=== PATIENT | female | born 1985 | race Caucasian/White ===

== ENCOUNTER → 2019-10-06 | Outpatient (CLI) | payer OTHER | LOC: LAB 15:40 | DX: N91.2 Amenorrhea, unspecified (principal) ==

== ENCOUNTER → 2019-10-13 | Outpatient (CLI) | payer OTHER ==
[2019-10-13 14:57] LABS: EOS # 0.2 (0.04-0.40); EOS % 1.9 % (1.0-5.0); HEMATOCRIT 40.5 % (37.0-47.0); HEMOGLOBIN 13.2 g/dL (12.5-16.0); LYMPH# 3.6 (1.50-4.00); MEAN CELL VOLUME 84 fl (78-100); MEAN CORPUSCULAR HEMOGLOBIN 28 pg (27-31); MEAN CORPUSCULAR HGB CONC 33 g/dL (33-37); MEAN PLATELET VOLUME 9.1 fl (7.4-10.4); MONO # 0.7 (0.20-0.80); NEU # 7.8 (1.40-6.50); PLATELET COUNT 335 K/mm3 (130-400); RED CELL DISTRIBUTION WIDTH 13.9 % (11.5-14.5); WHITE BLOOD COUNT 12.4 K/mm3 (4.8-10.8)
[2019-10-13 15:08] LABS: ALBUMIN 4.3 g/dL (3.5-5.0)
[2019-10-13 15:09] LABS: POTASSIUM 3.6 mmol/L (3.5-5.1)
[2019-10-13 15:10] LABS: CALCIUM 9.6 mg/dL (8.3-10.5)
[2019-10-13 15:11] LABS: TOTAL PROTEIN 7.7 g/dL (6.4-8.3)
[2019-10-13 15:13] LABS: TOTAL BILIRUBIN 0.2 mg/dL (0.2-1.2)
[2019-10-13 15:58] LABS: ERYTHROCYTE SEDIMENTATION RATE 33 mm/hr (0-20)
== END ==
LOC: LAB 14:46
PROVIDERS: Internal Medicine
DX: R10.84 Generalized abdominal pain (principal); R11.2 Nausea with vomiting, unspecified

== ENCOUNTER → 2019-10-16 | Outpatient (CLI) | payer OTHER | LOC: RAD 14:22 | DX: R10.84 Generalized abdominal pain (principal); R11.2 Nausea with vomiting, unspecified | CPT/HCPCS: Q9967 ==

== ENCOUNTER → 2019-11-12 | Outpatient (CLI) | payer OTHER | LOC: RAD 07:25 | DX: K80.20 Calculus of gallbladder without cholecystitis without obstruction (principal) ==

== ENCOUNTER → 2020-12-22 | Outpatient (CLI) | payer OTHER ==
[~2020-12-22] MED LIST: PHARMASSURE CHE30 MG; PREDNISONE20 MG; VITAMIN C500 M6 PO
[2020-12-22 11:23] LABS: EOS # 0.2 (0.04-0.40); EOS % 2.8 % (1.0-5.0); HEMATOCRIT 41.2 % (37.0-47.0); HEMOGLOBIN 13.3 g/dL (12.5-16.0); LYMPH# 2.1 (1.50-4.00); MEAN CELL VOLUME 83 fl (78-100); MEAN CORPUSCULAR HEMOGLOBIN 27 pg (27-31); MEAN CORPUSCULAR HGB CONC 32 g/dL (33-37); MEAN PLATELET VOLUME 8.7 fl (7.4-10.4); MONO # 0.6 (0.20-0.80); NEU # 5.1 (1.40-6.50); PLATELET COUNT 299 K/mm3 (130-400); RED BLOOD COUNT 4.96 M/mm3 (4.10-5.30); RED CELL DISTRIBUTION WIDTH 14.6 % (11.5-14.5)
[2020-12-22 11:31] LABS: ALBUMIN 4.1 g/dL (3.5-5.0)
[2020-12-22 11:32] LABS: POTASSIUM 3.9 mmol/L (3.5-5.1)
[2020-12-22 11:33] LABS: CALCIUM 9.3 mg/dL (8.3-10.5)
[2020-12-22 11:34] LABS: TOTAL PROTEIN 7.1 g/dL (6.4-8.3)
[2020-12-22 11:36] LABS: TOTAL BILIRUBIN 0.4 mg/dL (0.2-1.2)
[2020-12-22 12:17] LABS: D-DIMER 0.77 mg/L FEU (0.15-0.50)
[2020-12-22 13:24] LABS: ERYTHROCYTE SEDIMENTATION RATE 70 mm/hr (0-20)
== END ==
LOC: LAB 10:57
PROVIDERS: Internal Medicine
DX: U07.1 COVID-19 (principal); K90.9 Intestinal malabsorption, unspecified; R59.0 Localized enlarged lymph nodes

== ENCOUNTER → 2020-12-23 | Outpatient (CLI) | payer OTHER | LOC: RAD 09:12 | DX: J18.1 Lobar pneumonia, unspecified organism (principal); Z90.49 Acquired absence of other specified parts of digestive tract | CPT/HCPCS: Q9967 ==

== ENCOUNTER 2021-01-05 12:53 | Inpatient (IN) | payer OTHER ==
[~2021-01-05] VITALS: Ht 162.6 cm; Wt 100.7 kg
[2021-01-05] MEDS ORDERED: PREDNISONE20 MG (13:23)
[2021-01-05] MEDS ORDERED: VITAMIN C500 M6 PO (13:24)
[2021-01-05] MEDS ORDERED: PHARMASSURE CHE30 MG (13:24)
[2021-01-05 13:57] LABS: EOS % 0.1 % (1.0-5.0); HEMATOCRIT 45.3 % (37.0-47.0); HEMOGLOBIN 14.5 g/dL (12.5-16.0); LYMPH# 3.7 (1.50-4.00); MEAN CELL VOLUME 83 fl (78-100); MEAN CORPUSCULAR HEMOGLOBIN 27 pg (27-31); MEAN CORPUSCULAR HGB CONC 32 g/dL (33-37); MONO # 0.4 (0.20-0.80); PLATELET COUNT 417 K/mm3 (130-400); RED BLOOD COUNT 5.46 M/mm3 (4.10-5.30); RED CELL DISTRIBUTION WIDTH 14.9 % (11.5-14.5); WHITE BLOOD COUNT 17.1 K/mm3 (4.8-10.8)
[2021-01-05 13:59] LABS: NEU # 12.8 (1.40-6.50)
[2021-01-05 14:18] LABS: ALBUMIN 4.3 g/dL (3.5-5.0); POTASSIUM 3.2 mmol/L (3.5-5.1); SODIUM 141 mmol/L (136-145)
[2021-01-05 14:19] LABS: CALCIUM 9.4 mg/dL (8.3-10.5)
[2021-01-05 14:20] LABS: GLUCOSE 149 mg/dL (65-105)
[2021-01-05 14:21] LABS: TOTAL PROTEIN 7.8 g/dL (6.4-8.3)
[2021-01-05 14:22] LABS: CARBON DIOXIDE 21 mmol/L (22-29); TOTAL BILIRUBIN 0.3 mg/dL (0.2-1.2)
[2021-01-05 14:26] LABS: AST-SGOT 13 U/L (5-34)
[2021-01-05 14:27] LABS: ALT/SGPT 28 U/L (0-55)
[2021-01-05 14:40] LABS: TROPONIN-I < 0.03 ng/mL (<0.030)
[2021-01-05 15:19] LABS: D-DIMER 0.21 mg/L FEU (0.15-0.50)
[2021-01-05 16:21] LABS: URINE APPEARANCE CLEAR; URINE BILIRUBIN NEGATIVE (NEGATIVE); URINE BLOOD NEGATIVE (NEGATIVE); URINE COLOR YELLOW; URINE GLUCOSE NEGATIVE (NEGATIVE); URINE KETONE NEGATIVE (NEGATIVE); URINE LEUKOCYTE ESTERASE NEGATIVE (NEGATIVE); URINE NITRATE NEGATIVE (NEGATIVE); URINE PROTEIN(semi-quant) NEGATIVE (NEGATIVE); URINE UROBILINOGEN NORMAL (NORMAL); URINE WBC 0-1 /hpf (0-3)
[2021-01-05 17:26] VITALS: BP 110/69
[2021-01-05 21:58] VITALS: BP 114/64
[2021-01-06] VITALS (7 sets, daily range): BP systolic 101–133; BP diastolic 62–75
[2021-01-06 08:21] LABS: ALBUMIN 3.9 g/dL (3.5-5.0); POTASSIUM 3.5 mmol/L (3.5-5.1)
[2021-01-06 08:22] LABS: CALCIUM 9.1 mg/dL (8.3-10.5)
[2021-01-06 08:23] LABS: TOTAL PROTEIN 6.8 g/dL (6.4-8.3)
[2021-01-06 08:24] LABS: HEMATOCRIT 42.1 % (37.0-47.0); HEMOGLOBIN 13.1 g/dL (12.5-16.0); MEAN PLATELET VOLUME 9.3 fl (7.4-10.4); RED BLOOD COUNT 4.95 M/mm3 (4.10-5.30); RED CELL DISTRIBUTION WIDTH 15.4 % (11.5-14.5); WHITE BLOOD COUNT 17.9 K/mm3 (4.8-10.8)
[2021-01-06 08:25] LABS: TOTAL BILIRUBIN 0.3 mg/dL (0.2-1.2)
[2021-01-07 02:07] VITALS: BP 121/70
[2021-01-07 06:26] VITALS: BP 111/68
[2021-01-07 06:56] LABS: HEMATOCRIT 40.3 % (37.0-47.0); HEMOGLOBIN 12.7 g/dL (12.5-16.0); MEAN CELL VOLUME 86 fl (78-100); MEAN CORPUSCULAR HEMOGLOBIN 27 pg (27-31); MEAN CORPUSCULAR HGB CONC 32 g/dL (33-37); PLATELET COUNT 351 K/mm3 (130-400); RED BLOOD COUNT 4.71 M/mm3 (4.10-5.30); RED CELL DISTRIBUTION WIDTH 15.8 % (11.5-14.5)
[2021-01-07 07:00] LABS: WHITE BLOOD COUNT 21.4 K/mm3 (4.8-10.8)
[2021-01-07 07:03] LABS: LYMPHOCYTE 10 % (20-51); NEUTROPHILS 85 % (42-75)
[2021-01-07 07:04] LABS: MONOCYTE 3 % (3-10)
[2021-01-07 07:06] LABS: ALBUMIN 3.8 g/dL (3.5-5.0); POTASSIUM 4.3 mmol/L (3.5-5.1)
[2021-01-07 07:07] LABS: CALCIUM 9.2 mg/dL (8.3-10.5)
[2021-01-07 07:08] LABS: TOTAL PROTEIN 6.7 g/dL (6.4-8.3)
[2021-01-07 07:10] LABS: TOTAL BILIRUBIN 0.2 mg/dL (0.2-1.2)
[2021-01-07 10:31] VITALS: BP 131/80
[2021-01-07 13:56] VITALS: BP 127/75
[2021-01-07 18:32] VITALS: BP 145/80
[2021-01-07 19:23] LABS: HEMATOCRIT 39.9 % (37.0-47.0); HEMOGLOBIN 12.6 g/dL (12.5-16.0); MEAN PLATELET VOLUME 9.2 fl (7.4-10.4); RED BLOOD COUNT 4.73 M/mm3 (4.10-5.30); RED CELL DISTRIBUTION WIDTH 15.9 % (11.5-14.5)
[2021-01-07 19:24] LABS: WHITE BLOOD COUNT 23.3 K/mm3 (4.8-10.8)
[2021-01-07 19:35] LABS: POTASSIUM 4.1 mmol/L (3.5-5.1)
[2021-01-07 19:36] LABS: CALCIUM 9.2 mg/dL (8.3-10.5)
[2021-01-07 21:50] VITALS: BP 132/75
[2021-01-08 02:44] VITALS: BP 111/69
[2021-01-08 06:23] VITALS: BP 120/72
[2021-01-08 09:43] LABS: HEMOGLOBIN 12.4 g/dL (12.5-16.0); MEAN PLATELET VOLUME 8.9 fl (7.4-10.4); RED BLOOD COUNT 4.56 M/mm3 (4.10-5.30); RED CELL DISTRIBUTION WIDTH 15.8 % (11.5-14.5); WHITE BLOOD COUNT 15.5 K/mm3 (4.8-10.8)
[2021-01-08 09:50] LABS: POTASSIUM 3.3 mmol/L (3.5-5.1)
[2021-01-08 09:51] LABS: CALCIUM 8.4 mg/dL (8.3-10.5)
[2021-01-08 10:31] VITALS: BP 110/74
[2021-01-08 13:57] VITALS: BP 94/60
[2021-01-08 16:48] LABS: URINE WBC 0 /hpf (0-3)
[2021-01-08 17:14] LABS: URINE APPEARANCE CLEAR; URINE BILIRUBIN NEGATIVE (NEGATIVE); URINE BLOOD NEGATIVE (NEGATIVE); URINE COLOR YELLOW; URINE GLUCOSE NEGATIVE (NEGATIVE); URINE KETONE NEGATIVE (NEGATIVE); URINE LEUKOCYTE ESTERASE NEGATIVE (NEGATIVE); URINE NITRATE NEGATIVE (NEGATIVE); URINE PROTEIN(semi-quant) TRACE mg/dL (NEGATIVE); URINE UROBILINOGEN NORMAL (NORMAL)
[2021-01-08 18:03] VITALS: BP 112/72
[2021-01-08 22:33] VITALS: BP 120/75
[2021-01-09 02:27] VITALS: BP 104/70
[2021-01-09 06:22] VITALS: BP 100/67
[2021-01-09 09:13] LABS: EOS # 0.2 (0.04-0.40); EOS % 1.1 % (1.0-5.0); HEMATOCRIT 42.4 % (37.0-47.0); HEMOGLOBIN 13.1 g/dL (12.5-16.0); MEAN CELL VOLUME 85 fl (78-100); MEAN CORPUSCULAR HEMOGLOBIN 26 pg (27-31); MEAN CORPUSCULAR HGB CONC 31 g/dL (33-37); MONO # 1.2 (0.20-0.80); NEU # 8.7 (1.40-6.50); PLATELET COUNT 364 K/mm3 (130-400); RED BLOOD COUNT 4.97 M/mm3 (4.10-5.30); RED CELL DISTRIBUTION WIDTH 15.5 % (11.5-14.5); WHITE BLOOD COUNT 15.3 K/mm3 (4.8-10.8)
[2021-01-09 09:16] LABS: LYMPH# 5.1 (1.50-4.00)
[2021-01-09 09:17] LABS: ALBUMIN 3.7 g/dL (3.5-5.0); POTASSIUM 3.9 mmol/L (3.5-5.1)
[2021-01-09 09:18] LABS: CALCIUM 8.5 mg/dL (8.3-10.5)
[2021-01-09 09:20] LABS: TOTAL PROTEIN 6.4 g/dL (6.4-8.3)
[2021-01-09 09:22] LABS: TOTAL BILIRUBIN 0.4 mg/dL (0.2-1.2)
[2021-01-09 10:03] VITALS: BP 107/71
[2021-01-09 14:10] VITALS: BP 106/71
== END 2021-01-09 16:50 | disposition home or self-care (01) | DRG 871 ==
LOC: ED 12:53 → MED/SURG 16:25
PROVIDERS: Family Medicine; Physician Assistant; ADMIT Nurse Practitioner Family
DX: A41.9 Sepsis, unspecified organism (principal); J18.8 Other pneumonia, unspecified organism; J45.901 Unspecified asthma with (acute) exacerbation; E66.9 Obesity, unspecified; F41.9 Anxiety disorder, unspecified; R07.81 Pleurodynia; F32.9 Major depressive disorder, single episode, unspecified; G47.00 Insomnia, unspecified; E66.01 Morbid (severe) obesity due to excess calories; E87.6 Hypokalemia; R00.0 Tachycardia, unspecified; Z79.52 Long term (current) use of systemic steroids; Z86.16 Personal history of COVID-19
CPT/HCPCS: J0595; J1650; J1885; J2405; J2543; J2930; J3370; J3411; J7030; J7050; J7120; Q9967

== ENCOUNTER → 2021-01-13 | Outpatient (CLI) | payer OTHER ==
[2021-01-09 14:10] VITALS: BP 106/71
[2021-01-13 10:10] LABS: EOS # 0.3 (0.04-0.40); EOS % 2.3 % (1.0-5.0); HEMATOCRIT 42.5 % (37.0-47.0); HEMOGLOBIN 13.4 g/dL (12.5-16.0); LYMPH# 2.2 (1.50-4.00); MEAN CELL VOLUME 84 fl (78-100); MEAN CORPUSCULAR HEMOGLOBIN 27 pg (27-31); MEAN CORPUSCULAR HGB CONC 32 g/dL (33-37); MONO # 0.8 (0.20-0.80); NEU # 7.5 (1.40-6.50); PLATELET COUNT 293 K/mm3 (130-400); RED BLOOD COUNT 5.05 M/mm3 (4.10-5.30); WHITE BLOOD COUNT 10.8 K/mm3 (4.8-10.8)
[2021-01-13 10:17] LABS: ALBUMIN 3.9 g/dL (3.5-5.0); POTASSIUM 4.4 mmol/L (3.5-5.1)
[2021-01-13 10:20] LABS: TOTAL PROTEIN 6.9 g/dL (6.4-8.3)
[2021-01-13 10:22] LABS: TOTAL BILIRUBIN 0.3 mg/dL (0.2-1.2)
[2021-01-13 11:18] LABS: ERYTHROCYTE SEDIMENTATION RATE 43 mm/hr (0-20)
[2021-01-13 23:28] LABS: MYOGLOBIN - SEND OUT 16 ng/mL (0-106)
== END ==
LOC: LAB 09:42
PROVIDERS: Internal Medicine
DX: M79.10 Myalgia, unspecified site (principal); R20.2 Paresthesia of skin; R06.00 Dyspnea, unspecified

== ENCOUNTER → 2021-02-07 | Outpatient (CLI) | payer OTHER ==
[2021-01-09 14:10] VITALS: BP 106/71
== END ==
LOC: AMSURD 10:04
DX: R00.0 Tachycardia, unspecified (principal)

== ENCOUNTER → 2021-02-09 | Outpatient (CLI) | payer OTHER | LOC: RAD 13:00 | DX: N60.02 Solitary cyst of left breast (principal); N63.20 Unspecified lump in the left breast, unspecified quadrant ==

== ENCOUNTER → 2021-02-20 | Outpatient (CLI) | payer OTHER | LOC: RAD 07:00 | DX: N63.20 Unspecified lump in the left breast, unspecified quadrant (principal) ==

== ENCOUNTER → 2021-02-23 | Outpatient (CLI) | payer OTHER ==
[2021-02-23 15:46] LABS: EOS # 0.3 (0.04-0.40); EOS % 2.9 % (1.0-5.0); HEMATOCRIT 40.8 % (37.0-47.0); LYMPH# 2.6 (1.50-4.00); MEAN CELL VOLUME 83 fl (78-100); MEAN CORPUSCULAR HEMOGLOBIN 27 pg (27-31); MEAN CORPUSCULAR HGB CONC 32 g/dL (33-37); MONO # 0.7 (0.20-0.80); NEU # 5.8 (1.40-6.50); PLATELET COUNT 343 K/mm3 (130-400); RED BLOOD COUNT 4.89 M/mm3 (4.10-5.30); RED CELL DISTRIBUTION WIDTH 14.3 % (11.5-14.5); WHITE BLOOD COUNT 9.4 K/mm3 (4.8-10.8)
[2021-02-23 15:50] LABS: ALBUMIN 4.3 g/dL (3.5-5.0)
[2021-02-23 15:51] LABS: CALCIUM 9.4 mg/dL (8.3-10.5)
[2021-02-23 15:53] LABS: TOTAL PROTEIN 7.3 g/dL (6.4-8.3)
[2021-02-23 15:54] LABS: TOTAL BILIRUBIN 0.3 mg/dL (0.2-1.2)
[2021-02-23 16:57] LABS: ERYTHROCYTE SEDIMENTATION RATE 30 mm/hr (0-20)
== END ==
LOC: LAB 15:26
PROVIDERS: Internal Medicine
DX: R59.0 Localized enlarged lymph nodes (principal); I10 Essential (primary) hypertension

== ENCOUNTER → 2021-03-23 | Outpatient (CLI) | payer OTHER ==
[2021-03-23 16:42] LABS: EOS # 0.4 (0.04-0.40); EOS % 3.3 % (1.0-5.0); HEMATOCRIT 42.6 % (37.0-47.0); HEMOGLOBIN 13.6 g/dL (12.5-16.0); LYMPH# 3.1 (1.50-4.00); MEAN CELL VOLUME 83 fl (78-100); MEAN CORPUSCULAR HEMOGLOBIN 27 pg (27-31); MEAN CORPUSCULAR HGB CONC 32 g/dL (33-37); MEAN PLATELET VOLUME 9.2 fl (7.4-10.4); MONO # 0.8 (0.20-0.80); NEU # 6.1 (1.40-6.50); PLATELET COUNT 328 K/mm3 (130-400); RED BLOOD COUNT 5.13 M/mm3 (4.10-5.30); RED CELL DISTRIBUTION WIDTH 14.5 % (11.5-14.5); WHITE BLOOD COUNT 10.5 K/mm3 (4.8-10.8)
[2021-03-23 16:52] LABS: ALBUMIN 4.4 g/dL (3.5-5.0)
[2021-03-23 16:53] LABS: POTASSIUM 4.3 mmol/L (3.5-5.1); SODIUM 140 mmol/L (136-145)
[2021-03-23 16:56] LABS: CALCIUM 9.4 mg/dL (8.3-10.5); CARBON DIOXIDE 24 mmol/L (22-29)
[2021-03-23 16:57] LABS: GLUCOSE 96 mg/dL (65-105); TOTAL BILIRUBIN 0.2 mg/dL (0.2-1.2); TOTAL PROTEIN 7.4 g/dL (6.4-8.3)
[2021-03-23 17:00] LABS: AST-SGOT 11 U/L (5-34)
[2021-03-23 17:02] LABS: ALT/SGPT 17 U/L (0-55)
[2021-03-23 17:14] LABS: TROPONIN-I < 0.03 ng/mL (<0.030)
[2021-03-23 17:46] LABS: ERYTHROCYTE SEDIMENTATION RATE 17 mm/hr (0-20)
== END ==
LOC: RAD 16:30
PROVIDERS: Internal Medicine
DX: R06.00 Dyspnea, unspecified (principal); R07.89 Other chest pain

== ENCOUNTER → 2021-03-28 | Outpatient (CLI) | payer OTHER | LOC: RAD 12:47 | DX: R59.0 Localized enlarged lymph nodes (principal); J98.4 Other disorders of lung; R06.00 Dyspnea, unspecified; Z90.49 Acquired absence of other specified parts of digestive tract; Z86.16 Personal history of COVID-19 | CPT/HCPCS: Q9967 ==

== ENCOUNTER → 2021-04-06 | Outpatient (CLI) | payer OTHER | LOC: LAB 10:23 | DX: U07.1 COVID-19 (principal) ==

== ENCOUNTER → 2021-04-24 | Outpatient (CLI) | payer OTHER | LOC: CARDREHAB 10:49 | DX: G47.19 Other hypersomnia (principal) | CPT/HCPCS: G0399 ==

== ENCOUNTER → 2021-05-23 | Outpatient (CLI) | payer OTHER ==
[2021-05-23 23:57] LABS: IMMUNOGLOBULIN G 877 mg/dL (552-1631)
[2021-05-24 03:06] LABS: IGM,SERUM 158 mg/dL (33-293); IMMUNOGLOBULIN A 140 mg/dL (65-421)
[2021-05-24 12:46] LABS: ANA SCREEN with REFLEX Negative (Negative); SJOGRENS SSA 15 U/mL (0-99); SJOGRENS SSB 9 U/mL (0-99)
[2021-05-25 19:36] LABS: A/G RATIO (PEP) 1.12 (())
[2021-05-26 10:55] LABS: .COPPER,S 1.26 mcg/mL (())
== END ==
LOC: LAB 14:33
PROVIDERS: Psychiatry & Neurology Neurology
DX: G43.009 Migraine without aura, not intractable, without status migrainosus (principal)

== ENCOUNTER → 2021-05-29 | Outpatient (CLI) | payer OTHER | END | disposition still patient (30) | LOC: RAD 05-22 20:30 | DX: B94.8 Sequelae of other specified infectious and parasitic diseases (principal) ==

== ENCOUNTER → 2021-06-08 | Outpatient (CLI) | payer OTHER | LOC: RAD 16:38 | DX: G43.009 Migraine without aura, not intractable, without status migrainosus (principal) ==

== ENCOUNTER 2021-07-13 09:53 | Outpatient (RCR) | payer OTHER | END 2021-07-13 17:00 | disposition still patient (30) | LOC: SPEECH 09:53 | DX: J38.3 Other diseases of vocal cords (principal) ==

== ENCOUNTER → 2021-09-29 | Outpatient (CLI) | payer BC, OTHER ==
[2021-09-29 11:20] LABS: HEMATOCRIT 40.5 % (37.0-47.0); HEMOGLOBIN 12.9 g/dL (12.5-16.0); RED BLOOD COUNT 4.81 M/mm3 (4.10-5.30); RED CELL DISTRIBUTION WIDTH 13.7 % (11.5-14.5); WHITE BLOOD COUNT 8.9 K/mm3 (4.8-10.8)
[2021-10-04 06:13] LABS: ALTERNARIA TENUIS CNT 0.38 kU/L (()); ASPERGILLUS FUMIGATUS AL COUNT <0.10 kU/L (()); BERMUDA GRASS ALLERGEN COUNT <0.10 kU/L (()); BOX ELDER-MAPLE ALLERGEN COUNT <0.10 kU/L (()); CAT DANDER ALLERGEN COUNT <0.10 kU/L (()); CLADOSPORIUM ALLERGEN COUNT <0.10 kU/L (()); COCKROACH ALLERGEN COUNT <0.10 kU/L (()); COTTONWOOD TREE ALLERGEN COUNT <0.10 kU/L (()); DOG DANDER ALLERGEN COUNT <0.10 kU/L (()); DUST MITES (D.F.) ALLERG COUNT <0.10 kU/L (()); DUST MITES (D.P.) ALLERG COUNT <0.10 kU/L (()); ELM TREE ALLERGEN COUNT <0.10 kU/L (()); FIREBUSH ALLERGEN COUNT <0.10 kU/L (()); OAK ALLERGEN COUNT <0.10 kU/L (()); ROUGH MARSH ELDER ALLERG COUNT <0.10 kU/L (()); RUSSIAN THISTLE ALLERGEN COUNT <0.10 kU/L (()); SHORT RAGWEED ALLERGEN COUNT <0.10 kU/L (())
== END ==
LOC: LAB 11:00
PROVIDERS: Internal Medicine Pulmonary Disease
DX: R06.02 Shortness of breath (principal)

== ENCOUNTER → 2021-12-15 | Outpatient (CLI) | payer OTHER | LOC: LAB 11:35 | DX: K90.9 Intestinal malabsorption, unspecified (principal) ==

== ENCOUNTER → 2022-03-17 | Outpatient (CLI) | payer OTHER ==
[~2022-03-17] MED LIST changes: +CALCIUM500 M1 PO; +FLUTICASONE-SA1 EAC4 IH; +OMEPRAZOLE40 MG PO; +ONDANSETRON HYDR4 MG PO; +PROAIR HFA0.09 MG/AC IH; +PROMETHAZINE12.5 M5 PO; +SINGULAIR 110 MG/TAB PO
== END ==
LOC: RAD 08:38
DX: R05.9 Cough, unspecified (principal)

== ENCOUNTER → 2022-03-19 | Outpatient (CLI) | payer OTHER ==
[~2022-03-19] VITALS: Ht 162.6 cm; Wt 103.8 kg
[2022-03-19 12:07] VITALS: BP 119/74
[2022-03-19 12:10] LABS: EOS # 0.12 K/mm3 (0.04-0.40); HEMATOCRIT 37.9 % (37.0-47.0); HEMOGLOBIN 12.1 g/dL (12.5-16.0); LYMPH# 2.27 K/mm3 (1.50-4.00); MEAN CELL VOLUME 85 fl (78-100); MEAN CORPUSCULAR HEMOGLOBIN 27 pg (27-31); MEAN CORPUSCULAR HGB CONC 32 g/dL (33-37); MEAN PLATELET VOLUME 9.3 fl (7.4-10.4); MONO # 0.63 K/mm3 (0.20-0.80); NEU # 8.84 K/mm3 (1.40-6.50); PLATELET COUNT 296 K/mm3 (130-400); RED BLOOD COUNT 4.45 M/mm3 (4.10-5.30); RED CELL DISTRIBUTION WIDTH 14.3 % (11.5-14.5); WHITE BLOOD COUNT 11.9 K/mm3 (4.8-10.8)
[2022-03-19 12:20] LABS: ALBUMIN 3.7 g/dL (3.5-5.0)
[2022-03-19 12:21] LABS: POTASSIUM 4.3 mmol/L (3.5-5.1)
[2022-03-19 12:22] LABS: CALCIUM 9.8 mg/dL (8.3-10.5)
[2022-03-19 12:23] LABS: TOTAL PROTEIN 7.4 g/dL (6.4-8.3)
[2022-03-19 12:25] LABS: TOTAL BILIRUBIN 0.3 mg/dL (0.2-1.2)
[2022-03-19 14:45] LABS: URINE APPEARANCE CLEAR; URINE BILIRUBIN NEGATIVE (NEGATIVE); URINE BLOOD NEGATIVE (NEGATIVE); URINE COLOR YELLOW; URINE GLUCOSE NEGATIVE (NEGATIVE); URINE KETONE 2+ (NEGATIVE); URINE LEUKOCYTE ESTERASE NEGATIVE (NEGATIVE); URINE MUCUS PRESENT (NOT PRESENT); URINE NITRATE NEGATIVE (NEGATIVE); URINE PROTEIN(semi-quant) TRACE (NEGATIVE); URINE UROBILINOGEN NORMAL (NORMAL)
== END ==
LOC: AMSURD 11:03
PROVIDERS: Family Medicine
DX: O26.892 Other specified pregnancy related conditions, second trimester (principal); R05.9 Cough, unspecified; R09.89 Other specified symptoms and signs involving the circulatory and respiratory systems; Z3A.25 25 weeks gestation of pregnancy
CPT/HCPCS: J7030

== ENCOUNTER → 2022-09-27 | Outpatient (CLI) | payer OTHER | LOC: RAD 18:07 | DX: G04.00 Acute disseminated encephalitis and encephalomyelitis, unspecified (principal) | CPT/HCPCS: A9575 ==

== ENCOUNTER 2023-03-07 15:59 | Emergency (ER) | payer OTHER ==
[~2023-03-07] VITALS: Ht 162.6 cm; Wt 112.6 kg
[2023-03-07] MEDS ORDERED: SERTRALINE50 MG PO (16:48)
[2023-03-07] MEDS ORDERED: IRON PO (16:50)
[2023-03-07 17:22] LABS: BASO # 0.03 K/mm3 (0.02-0.10); EOS # 0.23 K/mm3 (0.04-0.40); EOS % 1.8 % (1.0-5.0); HEMATOCRIT 39.8 % (37.0-47.0); HEMOGLOBIN 12.4 g/dL (12.5-16.0); LYMPH# 3.89 K/mm3 (1.50-4.00); MEAN CELL VOLUME 81 fl (78-100); MEAN CORPUSCULAR HEMOGLOBIN 25 pg (27-31); MEAN CORPUSCULAR HGB CONC 31 g/dL (33-37); MONO # 0.66 K/mm3 (0.20-0.80); NEU # 7.99 K/mm3 (1.40-6.50); PLATELET COUNT 307 K/mm3 (130-400); RED BLOOD COUNT 4.92 M/mm3 (4.10-5.30); RED CELL DISTRIBUTION WIDTH 14.6 % (11.5-14.5); WHITE BLOOD COUNT 12.8 K/mm3 (4.8-10.8)
[2023-03-07 17:29] LABS: ALBUMIN 4.6 g/dL (3.5-5.0)
[2023-03-07 17:30] LABS: POTASSIUM 3.9 mmol/L (3.5-5.1); SODIUM 142 mmol/L (136-145)
[2023-03-07 17:31] LABS: CALCIUM 9.7 mg/dL (8.3-10.5)
[2023-03-07 17:32] LABS: GLUCOSE 103 mg/dL (65-105); TOTAL PROTEIN 7.6 g/dL (6.4-8.3)
[2023-03-07 17:33] LABS: CARBON DIOXIDE 23 mmol/L (22-29)
[2023-03-07 17:34] LABS: TOTAL BILIRUBIN 0.2 mg/dL (0.2-1.2)
[2023-03-07 17:37] LABS: AST-SGOT 14 U/L (5-34)
[2023-03-07 17:38] LABS: ALT/SGPT 20 U/L (0-55)
[2023-03-07 17:53] LABS: TROPONIN-I < 0.030 ng/mL (<0.030)
[2023-03-07 20:17] VITALS: BP 128/74
== END 2023-03-07 19:55 | disposition home or self-care (01) ==
LOC: ED 15:59
PROVIDERS: Family Medicine
DX: R07.89 Other chest pain (principal); U09.9 Post COVID-19 condition, unspecified; G89.29 Other chronic pain; Z28.310 Unvaccinated for COVID-19

== ENCOUNTER → 2023-11-13 | Outpatient (CLI) | payer OTHER ==
[~2023-11-13] MED LIST changes: +IRON PO; +PREDNISONE20 MG PO; +SERTRALINE50 MG PO
== END ==
LOC: RAD 08:58
DX: J39.8 Other specified diseases of upper respiratory tract (principal); R91.1 Solitary pulmonary nodule

== ENCOUNTER → 2025-02-11 | Outpatient (CLI) | payer SELFPAY ==
[2025-02-11 17:25] LABS: BASO # 0.04 K/mm3 (0.02-0.10); EOS # 0.21 K/mm3 (0.04-0.40); EOS % 1.8 % (1.0-5.0); HEMATOCRIT 32.3 % (37.0-47.0); HEMOGLOBIN 9.8 g/dL (12.5-16.0); LYMPH# 3.35 K/mm3 (1.50-4.00); MEAN CELL VOLUME 71 fl (78-100); MEAN CORPUSCULAR HEMOGLOBIN 21 pg (27-31); MEAN CORPUSCULAR HGB CONC 30 g/dL (33-37); MONO # 0.67 K/mm3 (0.20-0.80); NEU # 7.33 K/mm3 (1.40-6.50); PLATELET COUNT 375 K/mm3 (130-400); RED BLOOD COUNT 4.58 M/mm3 (4.10-5.30); RED CELL DISTRIBUTION WIDTH 15.7 % (11.5-14.5); WHITE BLOOD COUNT 11.6 K/mm3 (4.8-10.8)
[2025-02-11 17:28] LABS: ALBUMIN 4.1 g/dL (3.5-5.0)
[2025-02-11 17:30] LABS: CALCIUM 9.9 mg/dL (8.3-10.5)
[2025-02-11 17:31] LABS: TOTAL PROTEIN 8.4 g/dL (6.4-8.3)
[2025-02-11 17:33] LABS: TOTAL BILIRUBIN 0.3 mg/dL (0.2-1.2)
== END ==
LOC: LAB 16:53
PROVIDERS: Family Medicine
DX: R59.0 Localized enlarged lymph nodes (principal)